=== PATIENT | male | born 1960 | race Caucasian/White ===

== ENCOUNTER 2023-06-11 14:46 | Emergency (ER) | payer OTHER, SELFPAY ==
[2023-06-11 14:48] VITALS: BP 110/95; PULSE 93; RESP 17; TEMP 36.1; O2SAT 98
--- NOTE | 2023-06-11 17:34 | EDS_ITS ---
HPI History of Present Illness Chief Complaint: Weakness Detail of Chief Complaint: Total body pain not weakness Informant: patient and spouse/S.O. Onset/Context/Timing Onset: Weeks Context: Sudden Onset Timing: Continuous and Waxes and wanes Quality: Total body pain Location: Total body Current Severity: Moderate Maximum Severity: Severe Worsened by: Nothing Relieved by: Nothing Associated Symptoms Associated Symptoms: Reported swelling of his neck Narrative Narrative: Patient is a 63-year-old male with history of hypothyroidism, osteoarthritis of the lumbar spine, obstructive sleep apnea, VTE and complex pain syndrome who presents with total body pain. also states he has diagnosis of chronic myalgia. He is presently on gabapentin Ativan and Cymbalta with no relief. They are concerned he is resistant to the medication. He was on opiates which were discontinued a couple of months ago. He states he cannot find a pain management doctor that will treat his pain with medicines that he needs . When asked what he meant he was referred to opiate analgesics. Prior similar symptoms: No (Much worse) Recent Illness/Hospitalization: No PFSH PFSH Home Medications aspirin 81 mg chewable tablet 81 mg PO DAILY@0800 04/05/15 [History Last Taken 09/07/15 81 mg] dronabinol 10 mg capsule (Marinol) 30 mg PO TID 01/09/17 [History Last Taken Unknown] oxycodone 5 mg tablet 10 mg PO TID PRN Pain 01/09/17 [History Last Taken Unknown] Allergy/AdvReac Type Severity Reaction Status Date / Time baclofen Allergy Rash Verified 12/30/16 23:25 bupropion Allergy Unknown Verified 12/30/16 23:25 citalopram Allergy Unknown Verified 12/30/16 23:25 meloxicam [From Mobic] Allergy Other Verified 12/30/16 23:25 mirtazapine Allergy Unknown Verified 12/30/16 23:25 oxaprozin Allergy Unknown Verified 12/30/16 23:25 sertraline Allergy Unknown Verified 12/30/16 23:25 tramadol Allergy Chest Verified 12/30/16 23:25 tightness trazodone Allergy Unknown Verified 12/30/16 23:25 acetaminophen [From Tylenol] AdvReac Diarrhea Verified 12/30/16 23:25 ibuprofen AdvReac Nausea/Vom/ Verified 12/30/16 23:25 Diarrhea naproxen AdvReac Nausea/Vom/ Verified 12/30/16 23:25 Diarrhea NSAIDS (Non-Steroidal AdvReac Nausea/Vom/ Verified 12/30/16 23:25 Anti-Inflamma Diarrhea venlafaxine AdvReac Other Verified 12/30/16 23:25 Social History (Updated 06/11/23 @ 17:[address] Jean Pierre Wing MD) household members: spouse Smoking Status: Current every day smoker tobacco type: cigarettes substance use type: does not use ROS ROS ED Constitutional Constitutional ED: Denies chills, fever(s), subjective, sweats or weight loss Eyes Eyes: Denies blurry vision, change in vision or diplopia ENT ENT ED: Reports other Details: Intermittent neck swelling anterior and posterior neck for the past several days. ; Denies ear pain, rhinorrhea or sore throat Cardiovascular Cardiovascular: Denies chest pain or palpitations Respiratory/Chest Respiratory/Chest: Denies cough, dyspnea or dyspnea on exertion Gastrointestinal Gastrointestinal: Denies abdominal pain, nausea or vomiting Genitourinary Genitourinary ED: Denies dysuria, hematuria or urinary frequency Musculoskeletal Musculoskeletal: Denies arthralgias, back pain or myalgias Integumentary Denies Abrasions or rash Neurologic Neurologic: Denies headache(s), paresthesias or weakness Psychiatric Psychiatric: Denies anxiety, depression or suicidal ideation Endocrine Endocrinology: Denies cold intolerance, heat intolerance, polydipsia or polyuria Hematologic/Lymphatic Hematologic/Lymphatic: Reports systems reviewed and no addt'l complaints, except as documented Allergic/Immunologic Allergic/Immunologic ED: Denies mouth swelling, tongue swelling or urticaria EXAM Physical Exam Const Vital Signs: 06/11/23 14:48 06/11/23 16:47 06/11/23 18:09 Temperature 96.9 F L Temperature Source Temporal Pulse Rate 93 Respiratory Rate 17 Respiratory Pattern Normal Blood Pressure 110/95 H 137/83 H Blood Pressure Mean 100 101 Pulse Ox 98 Oxygen Delivery Method Room Air Room Air Positive well nourished, well developed and obese Constitutional Narrative: There is no eye contact during the entire history and physical which took approximately 12 minutes. Patient would intermittently rotate his right and left lower extremity inwards and outwards. He occasionally would grimace and proclaimed that he is in exquisite pain. There was concern patient had cyanotic appearing lips. He was placed on pulse ox and pulse ox is 99% room air. General Appearance ED: well developed; Negative for cyanotic, diaphoretic or pallor Nutritional Appearance: obese HEENT Reports dry mucous membranes HEENT Narrative: Head is atraumatic and normocephalic. Ears normal. Nares patent. Posterior pharynx out erythema or exudate. Uvula is midline. There is no D-Vit protrusion. Neck is symmetric. There is no cervical lymphadenopathy. Trachea is midline. There is no inspiratory or expiratory stridor. There is no enlargement of the parotid gland. There is no rash noted. Mouth ED: Yes dry mucous membranes Mouth: dry mucous membranes Eyes PERRL and EOMs intact bilaterally General Eye ED: Negative for pale conjunctiva or scleral icterus Neck no lymphadenopathy, supple and no JVD Chest Wall inspection of chest normal and palpation of chest normal Resp normal respiratory effort and clear to auscultation bilaterally Cardio regular rate, regular rhythm, S1 normal heart sound, S2 normal heart sound and no murmurs GI normal to inspection, nondistended, normoactive bowel sounds, non-tender, non- distended and no masses; Negative for hepatosplenomegaly Auscultation: normoactive bowel sounds Palpation: soft Back/Spine no CVA tenderness Extremity normal to inspection Extremity Narrative: Mild pitting edema of both right and left lower extremity. Patient also has varicosities. There are wounds that are well-healed without evidence infection proximal inner right and left thigh. General Extremety ED: Yes edema; Negative for tenderness or other findings General Extremity: edema; Negative for other findings Neuro oriented x3, CN's II-XII intact bilaterally and no sensory deficits noted Sensorium / Orientation: alert Psych Psych Narrative: No eye contact. Slow psychomotor skills. Requested answer some questions for him. Skin no rashes or lesions noted, No no wounds and skin turgor normal General Skin Exam: Negative for jaundice or pallor MDM MDM MDM Narrative Medical decision making narrative: Patient with chronic myalgia. This may be exacerbation of his chronic myalgia. also is concerned he has a viral infection. His history is not suggestive of viral infection. Since he does have multiple medical problems will obtain CBC to assess white count differential as well as electrolyte panel to assess renal function electrolytes. Patient received IV Toradol for his pain. Since he was recently taken off opiate analgesics and based on his comment he did not receive opiate analgesics in the department. History & Record Review Additional record(s) reviewed:: Prior ED visit (Patient has not been seen since 2017. He was seen for chronic pain.) and Prior labs Lab Data Attestation: I reviewed the patient's lab results. Lab results narrative: CBC is unremarkable. Comprehensive metabolic panel reveals a chloride of 110 which is insignificant. Glucose is 69. Since patient is not diabetic this is most likely due to poor caloric intake. Labs: Laboratory Results - last 24 hr 06/11/23 18:04 WBC 8.0 RBC 5.38 Hgb 15.6 Hct 50.4 MCV 93.7 MCH 29.0 MCHC 31.0 L RDW Std Deviation 47.1 H RDW Coeff of [place] 13.7 Plt Count 280 MPV 10.1 Immature Gran % (Auto) 0.200 Neut % (Auto) 63.0 Lymph % (Auto) 23.1 [place] % (Auto) 8.7 Eos % (Auto) 4.0 Baso % (Auto) 1.0 Absolute Neuts (auto) 5.1 Absolute Lymphs (auto) 1.86 Nucleated RBC % 0 ESR 16 Sodium 142 Potassium 4.3 Chloride 110 H Carbon Dioxide 30.0 Anion Gap 2 L BUN 19 H Creatinine 1.03 Est GFR (MDRD) Af Amer 93 Est GFR (MDRD) Non-Af 77 BUN/Creatinine Ratio 18.4 Glucose 69 L Calcium 9.3 Total Bilirubin 0.40 AST 22 ALT 31 Alkaline Phosphatase 114 Total Protein 7.7 Albumin 3.5 Globulin 4.2 Albumin/Globulin Ratio 0.8 L Treatment and Re-Evaluation :: Patient and were told the cause of his pain is unknown. Suspect this has an affective component. Discharge Plan Triage Chief Complaint: Weakness Other Complaint: Other, Pain/Inj ED Provider: Jean Pierre Wing Dx/Rx/DC Orders Clinical Impression: Body aches, Depression, Obesity (BMI 30-39.9), EDY (obstructive sleep apnea), Hypothyroidism, Chronic pain disorder Instructions: ED Pain, Acute, Uncertain Cause Prescriptions: No Action aspirin 81 MG tablet,chewable 81 mg PO DAILY@0800 Patient Comments: [employer] dronabinol [Marinol] 10 MG capsule 30 mg PO TID oxycodone 5 MG tablet 10 mg PO TID PRN (Reason: Pain) [facility] [facility] [Primary Care Provider] - As Needed Disposition Disposition: Home, Self Care
[2023-06-11 18:09] VITALS: BP 137/83
[2023-06-11 18:26] LABS: Absolute Lymphocyte Count 1.86 X10^3/uL (0.83-4.51); Absolute Neutrophil Count 5.1 X10^3/uL (2.0-7.7); Basophil# 0.08 X10^3/uL; Eosinophil# 0.32 X10^3/uL; Hematocrit 50.4 % (40-54); Hemoglobin 15.6 g/dL (13.0-16.5); Lymphocyte # 1.86 X10^3/ul (0.83-4.51); Lymphocyte % 23.1 % (19-41); Mean Corpuscular Volume 93.7 fL (80-94); Mean Platelet Vol. 10.1 fl (6.2-12.0); Monocyte% 8.7 % (0-10); NRBC Flagged by Analyzer 0 % (0-5); Neutrophil # 5.06 X10^3/uL (2.7-7.7); Platelet Count 280 K/mm3 (150-450); RBC Distribution Width CV 13.7 % (11.6-14.6); RBC Distribution Width SD 47.1 fl (35.1-43.9); Red Blood Count 5.38 M/mm3 (4.6-6.2)
[2023-06-11 18:40] LABS: ALB/GLOB Ratio 0.8 RATIO (0.9-2.4); AST(SGOT) 22 U/L (15-37); Alanine Aminotransfer ALT/SGPT 31 U/L (16-61); Albumin, Serum 3.5 g/dL (3.2-5.0); Alkaline Phosphatase 114 U/L (45-117); Anion Gap 2 (5-15); BUN 19 mg/dL (7-18); BUN/Creat Ratio 18.4 RATIO (10-20); Calcium,Total 9.3 mg/dL (8.5-10.1); Chloride 110 mmol/L (98-107); Creatinine, Serum 1.03 mg/dL (0.70-1.30); EST Glomerular Filtration Rate 77 mL/min (>60); Erythrocyte Sedimentation Rate 16 mm/hr (0-20); Est Glom Filt Rate - Afr Amer 93 mL/min (>60); Globulin 4.2 g/dL (2.2-4.2); Glucose 69 mg/dL (74-106); Potassium 4.3 mmol/L (3.5-5.1); Protein, Total 7.7 g/dL (6.4-8.2); Sodium Level 142 mmol/L (136-145)
[2023-06-11 18:47] VITALS: BMI 35.7
--- NOTE | 2023-06-11 18:52 | ED.RN ---
Pt refused Toradol because it causes painful evacuation. This RN informed Dr. Wing that patient requesting a different medication due to allergy. Dr. Wing stated that because patient does not have an allergic reaction, he does not want to order a different pain medication at this time. This RN informed pt and family of the doctor's response. Pt given the option to take Toradol or try nonpharmacologic pain interventions. Pt refused Toradol again. This RN provided the patient with another warm blanket and turn down lights in his room.
[2023-06-11 19:24] VITALS: BP 120/70; PULSE 91; RESP 16; O2SAT 98
== END 2023-06-11 19:45 | disposition home or self-care (01) ==
PROVIDERS: Emergency Provider Emergency Medicine; Visit Provider Emergency Medicine
DX: R53.1 Weakness (principal); G89.29 Other chronic pain; E66.9 Obesity, unspecified; G47.33 Obstructive sleep apnea (adult) (pediatric); F17.210 Nicotine dependence, cigarettes, uncomplicated; E03.9 Hypothyroidism, unspecified; Z68.30 Body mass index [BMI] 30.0-30.9, adult
CPT/HCPCS: 80053; 85025; 85652; 99283; A4216